=== PATIENT | female | born 1990 | race Hispanic/Latino ===

== ENCOUNTER → 2018-02-05 17:01 | Outpatient (CLI) | payer OTHER, MEDICAID, SELFPAY ==
[2018-02-11 10:00] LABS: AFP, Serum 36.6 ng/mL; Calc Gestational Age 18.4; Cigarette Smoker N; Donated Egg NOT GIVEN; Donor Egg Age NOT GIVEN; Estriol, Free 1.44 ng/mL; Inhibin A, Dimeric 80 pg/mL; Maternal Ethnicity NOT GIVEN; Maternal Weight 163 lbs; Number of Fetuses NOT GIVEN; Previous Pregnancy Down Syndro NOT GIVEN; hCG, MoM 0.38; hCG, Serum 8.2 IU/mL
== END ==
PROVIDERS: PCP Family Medicine; Visit Provider Obstetrics & Gynecology
DX: Z34.82 Encounter for supervision of other normal pregnancy, second trimester (principal)
CPT/HCPCS: 36415; 82105; 82677; 84702; 86336

== ENCOUNTER → 2018-03-05 15:01 | Outpatient (CLI) | payer OTHER, MEDICAID, SELFPAY ==
--- NOTE | 2018-03-05 15:04 | DI.US.S_ITS ---
PROCEDURE: US OB >= 14 WEEKS FETUS INDICATIONS: anatomy survey OUTSIDE/PRIOR DATING DATA: Last menstrual period (LMP): Unknown LMP-based estimated date of delivery (JENSEN): N./A.. First dating scan (date and location): 11/17/17. Estimated date of delivery (JENSEN) from first dating scan: 07/06/18 TECHNIQUE: Real-time scanning was performed of the fetus, with image documentation and biometric measurements. Endovaginal scanning: No COMPARISON: [facility], , OB >= 14 WEEKS FETUS, 02/05/2018, 16:49. FINDINGS: General: A single living intrauterine gestation is present. Presentation: Breech. Placenta: Placental position is posterior, without previa. Amniotic fluid index: 16.6 cm, normal range is 5-24 cm. heart rate: 155 beats per minute. Maternal cervical canal: 5.0 cm long. Normal lower limit is 2.5 cm. biometrics: Biparietal diameter: 22 weeks 4 days Head circumference: 22 weeks 2 days Abdominal circumference: 22 weeks 5 days Femur length: 21 weeks 5 days Estimated gestational age from initial scan: 22 weeks 3 days Composite gestational age from present scan: 22 weeks 2 days Estimated weight and percentile: 490 g; 35th percentile Measurement variability for biometric dating: +/- 7 days from 14 weeks to 15 weeks 6 days gestation, +/- 10 days from 16 weeks to 21 weeks 6 days gestation, +/- 2 weeks from 22 weeks to 27 weeks 6 days gestation, +/- 3 weeks for 28 weeks gestation or later. weight reference: 4500 g or EFW >90/95% is considered macrosomia or large for gestational age. EFW <10% is small for gestational age. EFW 5% or less is considered intra-uterine growth restriction. Anatomic survey: Neuro: Ventricles are non-dilated at less than 10 mm. Cisterna magna is normal at 3-11 mm. Cerebellum is normal in size and morphology. Nuchal skin fold: Normal at less than 6 mm between 14-21 weeks gestational age. Face: Nose and lips, facial profile are normal. Spine: No evidence for spina bifida. Heart: 4-chambered heart is present, with normal ventricular outflow tracts. Diaphragm: Diaphragm is intact. Stomach: Left-sided stomach is present. Kidneys: No hydronephrosis. Normal is less than 5 mm in 2nd trimester, less than 7 mm in 3rd trimester. Cord: 3-vessel cord has orthotopic insertion. Bladder: Normal in size. Extremities: All 4 extremities identified. IMPRESSION: 1. Single living IUP redemonstrated and interval growth is normal. 2. Normal anatomic survey. Dictated by: Luis BURKETT Interpreted: Reina Villanueva MD on 03/05/2018 at 16:27 Approved by: Reina Villanueva MD, PhD on 03/05/2018 at 17:38
== END ==
PROVIDERS: PCP Family Medicine; Visit Provider Obstetrics & Gynecology
DX: Z36.89 Encounter for other specified antenatal screening (principal); Z34.82 Encounter for supervision of other normal pregnancy, second trimester; Z3A.22 22 weeks gestation of pregnancy
CPT/HCPCS: 76811

== ENCOUNTER → 2018-03-27 12:33 | Outpatient (CLI) | payer OTHER, MEDICAID, SELFPAY | PROVIDERS: PCP Family Medicine; Visit Provider Obstetrics & Gynecology | DX: Z34.82 Encounter for supervision of other normal pregnancy, second trimester (principal) ==

== ENCOUNTER → 2018-04-13 08:19 | Outpatient (CLI) | payer OTHER, MEDICAID, SELFPAY ==
[2018-04-13 10:29] LABS: Hematocrit 37.4 % (36-46); Hemoglobin 12.6 g/dL (12.0-16.0)
[2018-04-13 11:00] LABS: GTT (PREG) 1 Hour PP 50gm Dose 146 mg/dL (76-139)
== END ==
PROVIDERS: PCP Family Medicine; Visit Provider Obstetrics & Gynecology
DX: Z34.82 Encounter for supervision of other normal pregnancy, second trimester (principal)
CPT/HCPCS: 36415; 82950; 85014; 85018

== ENCOUNTER → 2018-04-20 07:21 | Outpatient (CLI) | payer OTHER, MEDICAID, SELFPAY ==
[2018-04-20 09:03] LABS: Glucose Fasting Gestational 85 mg/dL (76-95)
[2018-04-20 10:18] LABS: Glucose 2 Hour Gest 146 mg/dL (76-155)
[2018-04-20 10:28] LABS: Glucose 1 Hour Gest 148 mg/dL (76-180)
[2018-04-20 10:46] LABS: Glucose Tol Interp,Gestational INTERPRETATION
[2018-04-20 12:18] LABS: Glucose 3 Hour Gest 106 mg/dL (76-140)
== END ==
PROVIDERS: PCP Family Medicine; Visit Provider Obstetrics & Gynecology
DX: O99.810 Abnormal glucose complicating pregnancy (principal)
CPT/HCPCS: 36415; 82951; 82952

== ENCOUNTER → 2018-06-08 10:17 | Outpatient (CLI) | payer OTHER, MEDICAID, SELFPAY ==
[2018-06-09 07:58] LABS: Strep Grp B PCR NEG for Grp B Strep
== END ==
PROVIDERS: PCP Family Medicine; Visit Provider Obstetrics & Gynecology
DX: Z3A.36 36 weeks gestation of pregnancy (principal)
CPT/HCPCS: 87653

== ENCOUNTER → 2018-06-28 07:44 | Outpatient (CLI) | payer OTHER, MEDICAID, SELFPAY | END | disposition home or self-care (01) | LOC: LABOR 08:08 → OB 06-30 15:42 | PROVIDERS: PCP Family Medicine; Visit Provider Obstetrics & Gynecology | DX: Z34.83 Encounter for supervision of other normal pregnancy, third trimester (principal); Z3A.38 38 weeks gestation of pregnancy | CPT/HCPCS: 59025; G0378; G0379 ==

== ENCOUNTER 2018-07-05 06:51 | Inpatient (IN) | payer OTHER, MEDICAID, SELFPAY ==
--- NOTE | 2018-07-05 07:24 | PM.OBPRVD ---
Delivery date: 07/05/18 Intrapartal events: Precipitous Labor < 3 hours Induction method: none Delivery augmentation: rupture of membranes Delivery monitor: external FHT and external uterine Route of delivery: Episiotomy description: None Laceration description: None Estimated blood loss (mL): 100 Anesthesia type: None Complications: None Narrative: Patient complete and pushed x1. A live female delivered spontaneously in the sac at at 7:13 a.m.. No nuchal cord. The sac was reduced. The infant was placed on mom's abdomen. The cord was double clamped and cut. Cord bloods were obtained. The placenta delivered intact with a 3 vessel cord at 7:16 a.m.. Fundus was massaged to firm. 10 units of IM Pitocin were given. No lacerations. . No analgesia. Mom and infant stable to recovery. Plan for aftercare: To routine care
[2018-07-05] MEDS: IBUPROFEN 600 MG TABLET PO ×2 (08:47→19:52)
[2018-07-05 09:48] VITALS: BP 100/59
[2018-07-05] MEDS: HYDROCODONE/ACET 5/325 TABLET 2 TAB PO ×3 (10:01→21:04)
[2018-07-05] MEDS: METHYLERGONOVINE 0.2 MG TABLET PO ×2 (13:24→19:51)
[2018-07-05] MEDS: HYDROMORPHONE 2 MG TABLET PO (13:35)
[2018-07-06] MEDS: METHYLERGONOVINE 0.2 MG TABLET PO ×2 (00:08→08:07)
[2018-07-06] MEDS: DOCUSATE 250 MG CAPSULE PO (08:07)
[2018-07-06] MEDS: PRENATAL VIT,CALC/IRON/FOLIC 1 TABLET 1 TAB PO (08:07)
[2018-07-06 08:12] LABS: Hematocrit 31.8 % (36-46); Hemoglobin 10.6 g/dL (12.0-16.0)
[2018-07-06 13:45] VITALS: BP 91/60; PULSE 66; RESP 16; TEMP 37.1
[2018-07-06 13:51] VITALS: BP 91/60; PULSE 66; RESP 16; TEMP 37.1
== END 2018-07-06 14:45 | disposition home or self-care (01) | DRG 560 ==
PROVIDERS: Admitting Provider Obstetrics & Gynecology; PCP Family Medicine; Visit Provider Obstetrics & Gynecology
DX: O80 Encounter for full-term uncomplicated delivery (principal); Z37.0 Single live birth; Z3A.39 39 weeks gestation of pregnancy
CPT/HCPCS: 36415; 59050; 59409; 85014; 85018; G0379

== ENCOUNTER → 2024-09-08 17:19 | Outpatient (CLI) | payer OTHER, SELFPAY | PROVIDERS: PCP Family Medicine; Visit Provider Nurse Practitioner Family | DX: R30.0 Dysuria (principal); N94.89 Other specified conditions associated with female genital organs and menstrual cycle | CPT/HCPCS: 87077; 87086; 87186; 87210 ==

== ENCOUNTER → 2025-08-14 13:52 | Outpatient (CLI) | payer OTHER, SELFPAY ==
--- NOTE | 2025-08-14 13:54 | DI.US.S_ITS ---
PROCEDURE: US PELVIC COMPLETE INDICATIONS: bleeding in early , concern for ectopic , TECHNIQUE: Real-time scanning was performed of the pelvic organs, with image documentation. Additional endovaginal scanning was necessary due to incomplete visualization of the adnexal and endometrial structures by transabdominal scanning. COMPARISON: [facility], US, US PELVIC COMPLETE, 08/14/2025, 13:41. FINDINGS: Uterus: Uterus is anteverted and normal in size at 9.3 x 4.6 x 6.3 cm. The myometrium is homogeneous. The endometrium measures 10.2 mm combined thickness. No evidence of intrauterine . Ovaries: The right ovary measures 3.0 x 1.2 x 2.8 cm, with a calculated ovarian volume of 5.1 cc. The left ovary measures 2.0 x 4.4 x 2.1 cm, with a calculated ovarian volume of 9.5 cc. Left ovarian dominant follicle measuring 1.7 cm. The ovaries have a normal sonographic appearance. Less than 12 follicles can be seen in each ovary. No adnexal masses are seen. Other: No pathologic free abdominal or pelvic fluid. IMPRESSION: Normal appearance of the uterus and ovaries. No intrauterine is seen. No ectopic is appreciated. As clinically indicated, follow-up beta HCG and ultrasound can be obtained. We strive to produce accurate, complete, and clear reports of imaging services. To assist us in improving patient care, this report was composed using standard report templates and voice recognition software. Therefore, it may contain abnormal punctuation, insertions and/or omissions. Occasional wrong-word or sound-alike substitutions may occur. Though we review the report and make efforts to correct it, we do recommend that the report be read carefully in proper context to recognize any text inaccuracies. Dictated by: Richard Bacon M.D. on 08/14/2025 at 15:04 Approved by: Richard Bacon M.D. on 08/14/2025 at 15:06
[2025-08-14 15:24] LABS: HCG Quantitative /Beta subunit 9.11 mIU/mL
== END ==
PROVIDERS: Referring Provider Obstetrics & Gynecology; Visit Provider Obstetrics & Gynecology
DX: O36.80X0 Pregnancy with inconclusive fetal viability, not applicable or unspecified (principal)
CPT/HCPCS: 36415; 76830; 76856; 84702

== ENCOUNTER → 2025-08-21 14:05 | Outpatient (CLI) | payer OTHER, SELFPAY ==
[2025-08-21 15:27] LABS: HCG Quantitative /Beta subunit < 2.39 mIU/mL; Progesterone, Total 0.45 ng/mL
== END ==
PROVIDERS: PCP Student in an Organized Health Care Education/Training Program; Referring Provider Student in an Organized Health Care Education/Training Program; Visit Provider Obstetrics & Gynecology
DX: O09.899 Supervision of other high risk pregnancies, unspecified trimester (principal); O36.80X0 Pregnancy with inconclusive fetal viability, not applicable or unspecified
CPT/HCPCS: 36415; 84144; 84702; 86850; 86900; 86901